=== PATIENT | male | born 1990 | race Caucasian/White ===

== ENCOUNTER 2023-07-25 06:30 | Day surgery (SDC) | payer MEDICAID, OTHER ==
[2023-07-25] MEDS ORDERED: Sodium Chloride 0.9% 1,000 ML IV SCH (07:15)
[2023-07-25] MEDS ORDERED: Propofol 200 MG/20 ML SDV ONE ×2 (07:24→08:36)
[2023-07-25] MEDS ORDERED: fentaNYL 100 MCG/2 ML SDV ONE (07:24)
[2023-07-25] MEDS ORDERED: Midazolam 1 MG/ML 2 ML SDV ONE (07:24)
== END 2023-07-25 09:55 | disposition home or self-care (01) ==
LOC: JP.SDS 06:30
PROVIDERS: ATTEND Surgery
DX: Z12.11 Encounter for screening for malignant neoplasm of colon (principal); K63.5 Polyp of colon; K21.00 Gastro-esophageal reflux disease with esophagitis, without bleeding; K22.89 Other specified disease of esophagus; K57.30 Diverticulosis of large intestine without perforation or abscess without bleeding; F32.A Depression, unspecified; F17.200 Nicotine dependence, unspecified, uncomplicated; Z88.0 Allergy status to penicillin
CPT/HCPCS: 43239; 45380; 45385; J2250; J2704; J3010; J7030

== ENCOUNTER 2023-12-18 18:57 | Emergency (ER) | payer OTHER ==
[2023-12-18 19:56] LABS: BASOPHILS ABSOLUTE AUTO 0.06 K/uL (0.00-0.10); BASOPHILS PERCENT AUTO 0.5 % (0.1-1.3); EOSINOPHILS ABSOLUTE AUTO 0.07 K/uL (0.00-0.40); EOSINOPHILS PERCENT AUTO 0.6 % (0.0-5.4); HEMATOCRIT 47.5 % (38.4-49.7); HEMOGLOBIN 16.9 g/dL (12.9-16.9); IMMATURE GRAN ABSOLUTE AUTO 0.08 K/uL (0.00-0.23); IMMATURE GRAN PERCENT AUTO 0.7 % (0.0-0.7); LYMPHOCYTES ABSOLUTE AUTO 2.81 K/uL (0.8-3.3); LYMPHOCYTES PERCENT AUTO 23.7 % (11.4-47.7); MEAN CORPUSCULAR HEMOGLOBIN 30.8 pg (31.6-35.5); MEAN CORPUSCULAR HGB CONC 35.6 g/dL (31.6-35.5); MEAN CORPUSCULAR VOLUME 86.7 fL (81.4-99.0); MONOCYTES ABSOLUTE AUTO 1.14 K/uL (0.20-0.90); MONOCYTES PERCENT AUTO 9.6 % (3.3-12.6); NEUTROPHILS ABSOLUTE AUTO 7.72 K/uL (1.0-7.6); NEUTROPHILS PERCENT AUTO 64.9 % (40.0-78.1); PLATELET COUNT,PLT 295 K/uL (130-375); RED BLOOD CELL COUNT 5.48 M/uL (4.14-5.76); WHITE BLOOD CELL COUNT,WBC 11.9 K/uL (3.2-11.0)
[2023-12-18 19:59] LABS: AMPHETAMINES SCREEN, URINE NEGATIVE (NEGATIVE); BARBITURATE SCREEN,URINE NEGATIVE (NEGATIVE); BENZODIAZEPINES SCREEN,URINE NEGATIVE (NEGATIVE); METHADONE SCREEN, URINE NEGATIVE (NEGATIVE); METHAMPHETAMINES SCREEN, URINE NEGATIVE (NEGATIVE); OXYCODONE SCREEN,URINE NEGATIVE (NEGATIVE); PROPOXYPHENE SCREEN,URINE NEGATIVE (NEGATIVE); THC SCREEN,URINE 50 NG/ML NEGATIVE (NEGATIVE)
[2023-12-18 20:12] LABS: CALCIUM 8.6 mg/dL (8.5-10.1); CREATININE 1.2 mg/dL (0.8-1.3); EST CRCL DRUG DOSING (CG) 107.5 mL/min; POTASSIUM,K 3.5 mmol/L (3.6-5.2)
[2023-12-18 20:17] LABS: ANION GAP 12.5 mmol/L (5.0-14.0)
[2023-12-19] MEDS: LORazepam 1 MG Tab PO ONE (10:34)
== END 2023-12-19 16:32 ==
LOC: JP.ED 18:57
DX: R45.851 Suicidal ideations (principal); F10.129 Alcohol abuse with intoxication, unspecified; K21.9 Gastro-esophageal reflux disease without esophagitis; F17.210 Nicotine dependence, cigarettes, uncomplicated; Z88.0 Allergy status to penicillin; Z79.899 Other long term (current) drug therapy
CPT/HCPCS: 36415; 80048; 80305; 80307; 85025; 99285; A9270

== ENCOUNTER 2024-03-09 22:31 | Emergency (ER) | payer OTHER ==
[2024-03-09 23:58] LABS: BASOPHILS ABSOLUTE AUTO 0.04 K/uL (0.00-0.10); BASOPHILS PERCENT AUTO 0.5 % (0.1-1.3); EOSINOPHILS ABSOLUTE AUTO 0.06 K/uL (0.00-0.40); EOSINOPHILS PERCENT AUTO 0.7 % (0.0-5.4); HEMOGLOBIN 16.9 g/dL (12.9-16.9); IMMATURE GRAN ABSOLUTE AUTO 0.04 K/uL (0.00-0.23); IMMATURE GRAN PERCENT AUTO 0.5 % (0.0-0.7); LYMPHOCYTES ABSOLUTE AUTO 1.86 K/uL (0.8-3.3); LYMPHOCYTES PERCENT AUTO 21.6 % (11.4-47.7); MEAN CORPUSCULAR VOLUME 86.1 fL (81.4-99.0); MONOCYTES ABSOLUTE AUTO 0.54 K/uL (0.20-0.90); MONOCYTES PERCENT AUTO 6.3 % (3.3-12.6); NEUTROPHILS ABSOLUTE AUTO 6.08 K/uL (1.0-7.6); NEUTROPHILS PERCENT AUTO 70.4 % (40.0-78.1); PLATELET COUNT,PLT 224 K/uL (130-375); RED BLOOD CELL COUNT 5.46 M/uL (4.14-5.76); WHITE BLOOD CELL COUNT,WBC 8.6 K/uL (3.2-11.0)
[2024-03-10 00:27] LABS: A/G RATIO 1.1 (1.2-2.2); ALANINE AMINOTRANSFERASE,ALT 43 U/L (12-78); ALBUMIN 3.9 g/dL (3.4-5.0); ALKALINE PHOSPHATASE 73 U/L (46-116); ANION GAP 10.6 mmol/L (5.0-14.0); ASPARTATE AMNIOTRANSFERASE,AST 36 U/L (15-37); BILIRUBIN TOTAL 0.2 mg/dL (0.2-1.0); BLOOD UREA NITROGEN,BUN 12 mg/dL (7-18); CALCIUM 8.6 mg/dL (8.5-10.1); CARBON DIOXIDE,CO2 26 mmol/L (21-32); CHLORIDE,CL 108 mmol/L (100-108); EST CRCL DRUG DOSING (CG) 127.79 mL/min; ESTIMATED GFR 101 mL/min (>60); GLUCOSE RANDOM 120 mg/dL (74-106); POTASSIUM,K 4.1 mmol/L (3.6-5.2); PROTEIN TOTAL,TP 7.3 g/dL (6.4-8.2); SODIUM,NA 145 mmol/L (140-148)
== END 2024-03-10 00:13 | disposition left against medical advice (07) ==
LOC: JP.ED 22:31
DX: Z53.21 Procedure and treatment not carried out due to patient leaving prior to being seen by health care provider (principal)
CPT/HCPCS: 36415; 80053; 80307; 85025